=== PATIENT | female | born 1990 | race African-American/Black ===

== ENCOUNTER 2016-10-04 02:27 | Emergency (ER) | payer OTHER ==
[2016-10-04 02:38] VITALS: BP 118/97
[2016-10-04] MEDS ORDERED: Lidocaine/EPINEPHrine/Tetracaine Soln 1 ML TOP ONE (02:50)
--- NOTE | 2016-10-04 02:54 | EDM.PDOC ---
ED HPI GENERAL MEDICAL PROBLEM - General Chief Complaint: ENT Problem Stated Complaint: TOOTH PAIN Time Seen by Provider: 10/04/16 02:41 Source of Information: Reports: Patient History Limitations: Reports: No Limitations - History of Present Illness INITIAL COMMENTS - FREE TEXT/NARRATIVE: The patient presents with dental pain. This started 2 days ago. It is in the left upper jaw. She has an abscess. She denies any fever or chills. This has bothered her in the past but she did not have insurance to get it taken care of. Onset: Gradual Duration: Day(s): (2) Location: Reports: Face (mouth left upper jaw) Quality: Reports: Sharp Severity: Severe Improves with: Reports: None Worsens with: Reports: None Associated Symptoms: Reports: No Other Symptoms Left Upper Tooth/Teeth Pain Score (Numeric/FACES): 10 - Related Data Allergies Allergy/AdvReac Type Severity Reaction Status Date / Time No Known Allergies Allergy Verified 10/04/16 02:38 Home Meds: Home Meds Penicillin V Potassium 500 mg PO Q6HR #40 tab 10/04/16 [Rx] oxyCODONE HCl/Acetaminophen [Percocet 5-325 mg Tablet] 1 - 2 each PO Q6HR PRN # 20 tablet 10/04/16 [Rx] Past Medical History - Past Health History Medical/Surgical History: Denies Medical/Surgical History HEENT History: Reports: None Cardiovascular History: Reports: None Respiratory History: Reports: None Gastrointestinal History: Reports: None Genitourinary History: Reports: None [employer] History: Reports: Musculoskeletal History: Reports: None Psychiatric History: Reports: None Endocrine/Metabolic History: Reports: None Hematologic History: Reports: Blood Transfusion(s) Immunologic History: Reports: None Oncologic (Cancer) History: Reports: None Dermatologic History: Reports: None - Infectious Disease History Infectious Disease History: Reports: None - Past Surgical History Head Surgeries/Procedures: Reports: None HEENT Surgical History: Reports: None GI Surgical History: Reports: None Female Surgical History: Reports: D&C Other Female Surgeries/Procedures: Still Social & Family History - Tobacco Use Smoking Status *Q: Current Every Day Smoker Years of Tobacco use: 9 Packs/Tins Daily: 0.5 Used Tobacco, but Quit: No Second Hand Smoke Exposure: No - Caffeine Use Caffeine Use: Reports: Soda - Recreational Drug Use Recreational Drug Use: No - Living Situation & Occupation Living situation: Reports: Single, with Family Occupation: Employed ED ROS ENT - Review of Systems Review Of Systems: See Below Constitutional: Reports: No Symptoms HEENT: Reports: Dental Pain Respiratory: Reports: No Symptoms Cardiovascular: Reports: No Symptoms Endocrine: Reports: No Symptoms GI/Abdominal: Reports: No Symptoms : Reports: No Symptoms Musculoskeletal: Reports: No Symptoms Skin: Reports: No Symptoms ED EXAM, ENT - Physical Exam Exam: See Below Exam Limited By: No Limitations General Appearance: Alert, No Apparent Distress Ears: Normal External Exam Nose: Normal Inspection Mouth/Throat: Dental Abcess (Left upper inner gum line near the canine tooth) Head: Atraumatic, Normocephalic Neck: Normal Inspection Respiratory/Chest: No Respiratory Distress Course - Vital Signs Last Recorded V/S: Last Vital Signs Temp 97.3 F 10/04/16 02:35 Pulse 96 10/04/16 02:35 Resp 20 10/04/16 02:35 BP 118/97 H 10/04/16 02:35 Pulse Ox 100 10/04/16 02:35 - Orders/Labs/Meds Meds: Medications Discontinued Medications Generic Name Dose Route Start Last Admin Trade Name Freq PRN Reason Stop Dose Admin Lidocaine/Tetracaine 1 ml 10/04/16 02:50 10/04/16 02:54 Let Soln TOP 10/04/16 02:51 1 ml ONETIME ONE Administration - Re-Assessments/Exams Free Text/Narrative Re-Assessment/Exam: 10/04/16 03:14 I put some LET on the abscess and then I used an 18 gauge needle to open it up. I did get some drainage from the abscess. She will need antibiotics and some thing for pain. Departure - Departure Time of Disposition: 03:15 Disposition: Home, Self-Care 01 Condition: Good Clinical Impression: Pain, dental, Dental abscess - Discharge Information Prescriptions: Penicillin V Potassium 500 mg PO Q6HR #40 tab oxyCODONE HCl/Acetaminophen [Percocet 5-325 mg Tablet] 1 - 2 each PO Q6HR PRN # 20 tablet PRN Reason: Pain Forms: ED Department Discharge Additional Instructions: Take the medication as prescribed. Follow up with your dentist. Please return if you are worse.
== END 2016-10-04 03:40 | disposition home or self-care (01) ==
LOC: JD.ED 02:27
DX: K04.7 Periapical abscess without sinus (principal); F17.210 Nicotine dependence, cigarettes, uncomplicated
CPT/HCPCS: 99282; A9270; 41800; 99283

== ENCOUNTER 2022-06-19 14:22 | Emergency (ER) | payer BC, MEDICAID, OTHER ==
[2022-06-19 14:40] VITALS: BP 119/71; PULSE 87
== END 2022-06-19 15:05 | disposition home or self-care (01) ==
LOC: JD.ED 14:22
DX: O99.891 Other specified diseases and conditions complicating pregnancy (principal); R10.30 Lower abdominal pain, unspecified; Z3A.19 19 weeks gestation of pregnancy
CPT/HCPCS: 36415; 76815; 76815-26; 80053; 81001; 83690; 85025; 99284